=== PATIENT | female | born 1960 | race American Indian/Alaskan Native ===

== ENCOUNTER 2016-10-13 07:18 | Outpatient (CLI) | payer BC ==
--- NOTE | 2016-10-13 12:51 | Mammography Report ---
BILATERAL DIGITAL SCREENING MAMMOGRAM with CAD: 10/13/16 07:18:00 CLINICAL: Routine screening. COMPARISON:02/05/15 FINDINGS: The breasts are heterogeneously dense, which may obscure small masses. No mass, architectural distortion or suspicious calcifications. IMPRESSION: No mammographic evidence of malignancy. BI-RADS CATEGORY: 1 - - Negative RECOMMENDATION: Routine mammographic screening in one year. COMMENT: Patient follow-up letters are generated by our [employer] application. The
== END 2016-10-13 07:19 | disposition home or self-care (01) ==
LOC: MAMMO 07:18
PROVIDERS: ATTEND Internal Medicine
DX: Z12.31 Encounter for screening mammogram for malignant neoplasm of breast (principal)
CPT/HCPCS: 77067; G0202

== ENCOUNTER 2017-03-09 12:14 | Day surgery (SDC) | payer BC ==
[2017-03-09] MEDS ORDERED: ZOFRAN IV PRN (13:22)
[2017-03-09] MEDS ORDERED: DILAUDID IV PRN (13:22)
[2017-03-09] MEDS ORDERED: ZOFRAN ONE (13:56)
[2017-03-09] MEDS ORDERED: SUBLIMAZE ONE (13:56)
[2017-03-09] MEDS ORDERED: DIPRIVAN 10 MG/ML IV ONE (13:56)
[2017-03-09] MEDS ORDERED: XYLOCAINE MPF 2% ONE (13:56)
[2017-03-09] MEDS ORDERED: DECADRON ONE ×2 (13:56→14:14)
[2017-03-09] MEDS ORDERED: PEPCID PO NR (14:00)
[2017-03-09] MEDS ORDERED: ANCEF/STERILE WATER 2 GM/20 ML IV NR (14:00)
[2017-03-09] MEDS ORDERED: VERSED IV NR (14:00)
[2017-03-09] MEDS ORDERED: NACL 0.9% 1000 ML 1,000 ML IV SCH (14:00)
[2017-03-09] MEDS ORDERED: MARCAINE-EPI 0.25%-1:200,000 INFILTRATI ONE ×2 (14:20→14:36)
[2017-03-09] MEDS ORDERED: PERCOCET 5/325 PO PRN (14:32)
--- NOTE | 2017-03-09 14:32 | Anesthesia Day of Surgery ---
Anesthesia Day of Surgery - Day of Surgery Patient Examined: Yes Patient H&P Reviewed: Yes Patient is NPO: Yes
--- NOTE | 2017-03-09 14:32 | Anesthesia Consultation ---
Anesthesia Consult and Med Hx Date of service: 03/09/17 - Airway Anesthetic Teeth Evaluation: Good, Crowns ROM Head & Neck: Adequate Mental/Hyoid Distance: Adequate Mallampati Class: Class II Intubation Access Assessment: Probably Good - Pulmonary Exam CTA: Yes - Cardiac Exam Cardiac Exam: RRR - Pre-Operative Health Status ASA Pre-Surgery Classification: ASA1 Proposed Anesthetic Plan: MAC - Pulmonary Hx Smoking: No Hx Sleep Apnea: No - Cardiovascular System Hx Heart Murmur: Yes ( A CHILD) - Central Nervous System Hx Psychiatric Problems: No - Hematic Hx Anemia: Yes - Other Systems Hx Cancer: No
[2017-03-09] MEDS ORDERED: NACL 0.9% IR ONE (14:36)
--- NOTE | 2017-03-09 14:47 | Short Stay Summary ---
Short Stay Documentation Date of service: 03/09/17 Narrative H&P: see attached H&P - Allergies and Medications Current Medications: Allergies No Known Allergies Allergy (Verified 10/02/15 17:12) Home Medications Medication Instructions Recorded Confirmed Last Taken Type Ferrous Sulfate [Feosol] 325 mg PO BID 02/27/17 03/09/17 03/05/17 History Active Medications Cefazolin Sodium (Ancef/Sterile Water 2 Gm/20 Ml) 2 gm IV PREOP NR Stop: 03/09/17 23:00 Famotidine (Pepcid) 20 mg PO PREOP NR Stop: 03/09/17 23:59 Last Admin: 03/09/17 13:57 Dose: 20 mg Hydromorphone HCl (Dilaudid) 0.5 mg IV Q10MIN PRN PRN Reason: Pain , Severe (7-10) Stop: 03/12/17 13:23 Sodium Chloride (Nacl 0.9% 1000 Ml) 1,000 mls @ 75 mls/hr IV DIRECT SVEN Last Admin: 03/09/17 13:57 Dose: 75 mls/hr Midazolam HCl (Versed) 2 mg IV PREOP NR Stop: 03/09/17 23:59 Last Admin: 03/09/17 13:57 Dose: 2 mg - Brief post op/procedure progress note Date of procedure: 03/09/17 Pre-op diagnosis: STM R. forearm Post-op diagnosis: same Procedure: Excision R. forearm mass Anesthesia: MAC Findings: 5cm [facility] Surgeon: FRANNY MCMANUS Estimated blood loss: none Pathology: list ([facility]) Specimen disposition: to lab Condition: stable - Disposition Condition at discharge: Good Short Stay Discharge Plan Activity: advance as tolerated Weight Bearing Status: Weight Bear as Tolerated Diet: regular Wound: open to air, keep clean and dry Follow up with: FRANNY MCMANUS MD [Staff Physician] - 7 Days
--- NOTE | 2017-03-09 15:41 | Post Anesthesia Evaluation ---
- Post Anesthesia Evaluation Patient Participated: Yes Airway Patent: Yes Stable Respiratory Function: Yes Nausea/Vomiting: No Temp > 96.8F: Yes Pain Manageable: Yes Adequeate Hydration: Yes Anesthesia Complications: No Block Receding Appropriately: Not Applicable Patient on Ventilator: No
[2017-03-09 18:08] VITALS: BP 126/70
--- NOTE | 2017-03-09 19:35 | Operative Report ---
PREOPERATIVE DIAGNOSIS: Right forearm mass. POSTOPERATIVE DIAGNOSIS: Right forearm mass. PROCEDURE: Excision, right forearm mass. SURGEON: Donte Thompson MD. ANESTHESIA: IV sedation and local anesthetic. ESTIMATED BLOOD LOSS: Minimal. COMPLICATIONS: None. DRAINS: None. SPECIMEN: Soft tissue mass, right forearm. The patient tolerated the procedure well. FINDINGS: About 5 cm soft tissue mass excised without difficulty. INDICATIONS: This is a 57-year-old female with right forearm soft tissue mass, here for excision. DESCRIPTION OF PROCEDURE: The patient taken to the OR and placed supine on the operating table. Once IV sedation was obtained, her right forearm was prepped and draped in sterile fashion ____ the mass. After local anesthetic applied a vertical incision made overlying the mass approximately 4 cm in length and the incision was taken down to subcutaneous tissue through the soft tissue mass, which was dissected off the surrounding soft tissue with the help of sharp dissection and removed under direct visualization. After adequate hemostasis and after palpation no other mass was palpable in this area. Soft tissue was approximated with 3-0 Vicryl, skin was approximated in a subcuticular technique and Dermabond was placed on the incision. The patient tolerated the procedure well. JOB# [id number] MAURICIO/DEANN
== END 2017-03-09 15:55 | disposition home or self-care (01) ==
LOC: OR 12:14
PROVIDERS: ATTEND Surgery
DX: M79.89 Other specified soft tissue disorders (principal); D64.9 Anemia, unspecified; Z79.899 Other long term (current) drug therapy
CPT/HCPCS: 25071; 88307; J2250; J2405; J2704; J7030; J0690; J1100; J3010